=== PATIENT | male | born 1955 | race Caucasian/White ===

== ENCOUNTER 2016-09-08 22:37 | Emergency (ER) | payer OTHER ==
--- NOTE | ~2016-09-08 | CR72 ---
[facility] A Service of [facility] & [facility] RADIOLOGY TEXT RESULTS PATIENT: TR GARNICA LOCATION: [facility] : 53 UNIT #: [id number] AGE: [address]: Hayder Molina MD SEX: M ORDER DR: [id number] [facility] [address] [place], [place] [address] [id number] E MR#: [id number] #: [id number] NAME: TR GARNICA : 1955 SEX: M STUDY DATE/TIME: 09/08/2016 23:28 UNIT: EARLINE ROOM: STUDY DESCRIPTION: CR Chest Single View Portable Attending Physician: Hayder Molina M.D. Ordering Physician: Hayder Molina M.D. Primary Care Physician: Cheyenne Chavez A.P.R.N. MEDICAL IMAGING REPORT This report is preliminary unless electronic signature is present EXAM Portable chest INDICATION Left-sided chest pain. Shortness of air today. PROCEDURE Frontal view chest COMPARISON 11/11/2010 FINDINGS Mild cardiomegaly. No dense consolidation, visible pleural fluid or pneumothorax. IMPRESSION Mild cardiomegaly. No active process. Dictated by... Gopal Viera M.D. THIS IS AN ELECTRONICALLY VERIFIED REPORT Gopal Viera M.D. at 09/09/2016 10:10 PM Sharron TD: 09/09/2016 09:26 JOB #: [id number] MEDICAL IMAGING REPORT Page 1 of 1 COPY
--- NOTE | ~2016-09-08 | EKG ---
PATIENT: TR GARNICA UNIT #: [id number] Ventricular Rate: 72 BPM Atrial Rate: 72 BPM P-R Interval: 196 ms QRS Duration: 98 ms Q-T Interval: 404 ms QTC Calculation(Bezet): 442 ms P [place]: 67 degrees Calculated R [place]: 73 degrees Calculated T [place]: 70 degrees Diagnosis Line: Sinus rhythm with marked sinus arrhythmia Diagnosis Line: Acute inferolateral subepicardial injury Diagnosis Line: ACUTE VT / STEMI Diagnosis Line: Consider right ventricular involvement in acute Diagnosis Line: inferior infarct Diagnosis Line: Abnormal ECG Diagnosis Line: No previous ECGs available Diagnosis Line: Confirmed by KERRI COREAS MD ([id number]) on Diagnosis Line: 09/09/2016 3:04:48 PM INTERPRETING MD: AYLEEN
--- NOTE | ~2016-09-08 | EKG ---
PATIENT: TR GARNICA UNIT #: [id number] Ventricular Rate: 55 BPM Atrial Rate: 55 BPM P-R Interval: 182 ms QRS Duration: 94 ms Q-T Interval: 416 ms QTC Calculation(Bezet): 397 ms P [place]: 60 degrees Calculated R [place]: 63 degrees Calculated T [place]: 47 degrees Diagnosis Line: Sinus bradycardia Diagnosis Line: Nonspecific ST and T wave abnormality Diagnosis Line: Abnormal ECG Diagnosis Line: No previous ECGs available Diagnosis Line: Confirmed by KERRI COREAS MD ([id number]) on Diagnosis Line: 09/09/2016 3:03:36 PM INTERPRETING MD: AYLEEN
[2016-09-08 23:23] LABS: BASOPHIL# 0.1 X10e3 (0-0.3); BASOPHIL% 1.1 % (0-2.5); EOSINOPHIL# 0.1 X10e3 (0-0.7); EOSINOPHIL% 1.2 % (0.0-7.0); HEMATOCRIT 39.5 % (38.0-50.0); MEAN CORPUSCULAR HEMOGLOBIN 30.9 PG (28-34); MEAN CORPUSCULAR HGB CONC 32.9 g/dL (30-36); MEAN PLATELET VOLUME 8.4 FL (6.5-11.5); MONOCYTE# 0.7 X10e3 (0-1.0); MONOCYTE% 7.5 % (3.0-12.0); NEUTROPHIL# 5.7 X10e3 (1.5-7.1); NEUTROPHIL% 59.2 % (40-75); PLATELET COUNT 212 X10e3 (140-420); WHITE BLOOD COUNT 9.6 X10e3 (4.0-10.5)
[2016-09-08 23:33] LABS: DIFF IND NO
[2016-09-08 23:40] LABS: POC - CKMB 2.8 ng/mL (0.0-7.9); POC - TROPONIN <0.05 ng/mL (<=0.05)
[2016-09-08 23:45] LABS: BILIRUBIN, DIRECT 0.1 mg/dL (0.0-0.2); BILIRUBIN,INDIRECT 0.2 mg/dL (0.0-0.9); BILIRUBIN,TOTAL 0.3 mg/dL (0.2-2.0); BUN/CREATININE RATIO 19.23; CALCIUM SERUM 8.9 mg/dL (8.4-10.2); CREATININE SERUM 1.3 mg/dL (0.6-1.4); GLOM FILT RATE Estimated 58.5 mL/min (>60); PROTEIN TOTAL SERUM 7.4 g/dL (6.0-8.3)
[2016-09-09 01:58] LABS: POC - CKMB 5.1 ng/mL (0.0-7.9); POC - TROPONIN <0.05 ng/mL (<=0.05)
== END 2016-09-09 02:05 | disposition short-term general hospital (02) ==
LOC: CED 22:37
PROVIDERS: Emergency Medicine
DX: I21.3 ST elevation (STEMI) myocardial infarction of unspecified site (principal); I20.0 Unstable angina; F17.200 Nicotine dependence, unspecified, uncomplicated
CPT/HCPCS: 36415; 71010; 80048; 80076; 82553; 82947; 84484; 85025; 93005; 96374; 96375; 99291; J1644; J2270